=== PATIENT | male | born 1975 | race Caucasian/White ===

== ENCOUNTER → 2017-08-16 | Outpatient (CLI) | payer BC ==
[~2017-08-16] MED LIST: EPP3/2 IM; LSN5 PO; MISCCAP80 PO; PRLSR20 PO
== END | disposition home or self-care (01) ==
LOC: C.PATHSPEC 15:03
PROVIDERS: ATTEND Dentist Oral and Maxillofacial Surgery
DX: L81.4 Other melanin hyperpigmentation (principal)